=== PATIENT | female | born 1990 | race Caucasian/White ===

== ENCOUNTER → 2018-03-14 02:36 | Outpatient (CLI) | payer MEDICAID, SELFPAY ==
[2018-03-14 09:00] LABS: HCT 39.8 % (36.0-46.0); HGB 13.3 g/dL (12.0-15.5); Mean Corp. HGB Concentration 33.4 g/dL (32.0-36.0); Mean Corpuscular Hemoglobin 29.7 pg (27.0-33.0); Mean Corpuscular Volume 88.8 fL (80-95); Mean Platelet Volume 12.6 fL (8.0-11.0); Platelet Count 194 x1000/uL (130-400); RBC 4.48 m/cumm (4.00-5.20); RBC Distribution Width 13.2 % (11.7-14.6); White Blood Cell Count 5.73 k/cumm (4.4-10.8)
== END ==
PROVIDERS: Visit Provider Obstetrics & Gynecology Gynecology
DX: Z30.2 Encounter for sterilization (principal); Z01.818 Encounter for other preprocedural examination
CPT/HCPCS: 36415; 85027; 86850; 86900; 86901

== ENCOUNTER 2018-04-27 07:21 | Outpatient (CLI) | payer MEDICAID, SELFPAY ==
[2018-04-27 09:20] LABS: ALT 22 U/L (12-78); AST 14 U/L (15-37); Albumin 3.8 g/dL (3.4-5.0); Alkaline Phosphatase 49 U/L (46-116); Anion Gap 8.9 mmol/L (3-11); BUN 12 mg/dL (7-18); Bilirubin, Total 0.4 mg/dL (0.2-1.0); CO2 27.1 mmol/L (21.0-32.0); CREATININE 0.87 mg/dL (0.55-1.02); Calcium 8.3 mg/dL (8.5-10.1); Chloride 106 mmol/L (98-107); Cholesterol 212 mg/dL (50-200); Glucose 82 mg/dL (70-100); HDL Cholesterol 49 mg/dL (40-60); LDL CHOLESTEROL 144 mg/dL (<100); Potassium 4.1 mmol/L (3.5-5.1); Sodium 142 mmol/L (136-145); Total Protein 6.6 g/dL (6.4-8.2); Triglyceride 91 mg/dL (30-150)
== END 2018-04-27 07:41 ==
DX: G47.9 Sleep disorder, unspecified (principal); E03.9 Hypothyroidism, unspecified; F32.9 Major depressive disorder, single episode, unspecified; F43.22 Adjustment disorder with anxiety; L70.0 Acne vulgaris
CPT/HCPCS: 36415; 80053; 80061; 83721; 84443

== ENCOUNTER 2018-11-18 13:58 | Outpatient (REF) | payer MEDICAID, SELFPAY ==
--- NOTE | 2018-11-18 13:40 | PAPFT_PTH ---
PATIENT: Nuvia Pace LOC: [facility] U#:[id number] AGE/SX: 28/F ROOM: RE11/18/[address]: RAFA Connelly : 1990 BED: DIS: 11/18/2018 SPEC #: [id number] RECD: 11/18/18 17:15 STATUS: FRIDA LOVE #: [id number] JOE: 11/18/18 13:[address]: Selena Mina DEPT: [facility] Cytology RECD BY: Leonardo To ENTERED: 11/18/18 17:16 SP TYPE: PAPFT JEREMY DR: Kira Goldberg APRN Tissues: 1 - CX/ENDOCX FOR PAP SMEARS Procedures: PAP THIN PREP/UVM Screening Comments: [id number]
== END 2018-11-18 14:18 ==
LOC: LBN 13:58
PROVIDERS: Visit Provider Nurse Practitioner Family
DX: Z12.4 Encounter for screening for malignant neoplasm of cervix (principal)
CPT/HCPCS: 88142

== ENCOUNTER 2018-12-02 01:46 | Outpatient (CLI) | payer MEDICAID, SELFPAY ==
--- NOTE | 2018-12-02 14:39 | DI.US_ITS ---
SYMPTOMS/DIAGNOSIS: PELVIC PAIN, CRAMPING, R10.2 PELVIC ULTRASOUND: Pelvic ultrasound was performed transabdominally and transvaginally. Please see the accompanying data sheet for measurements of the pelvic structures. Uterus is unremarkable in appearance with 9 mm homogeneous endometrial stripe. No free fluid identified in the cul-de-sac. The ovaries have a normal follicular appearance. There are 21 mm follicles noted bilaterally. One of these may represent a dominant follicle. Note is also made of prominence of left-sided pelvic veins, which measure up to 9-10 mm in diameter with Valsalva maneuver, raising the possibility of pelvic congestion syndrome. Please correlate clinically.
== END 2018-12-02 02:06 ==
PROVIDERS: Visit Provider Nurse Practitioner Family
DX: R10.2 Pelvic and perineal pain (principal); I86.2 Pelvic varices
CPT/HCPCS: 76830; 76856

== ENCOUNTER 2020-04-25 05:08 | Outpatient (CLI) | payer SELFPAY ==
[2020-04-25 09:54] LABS: MCH 30.4 pg (27.0-33.0); MCHC 33.3 % (32.0-36.0); MCV 91.3 fL (80-95); MPV 12.2 fL (8.0-11.0); Platelet Count 197 10^3/uL (130-400); RBC 4.27 10^6/uL (3.93-5.22); RDW 13.1 % (11.7-14.6); RDW-SD 43.2 fL; WBC 6.23 10^3/uL (4.4-10.8)
[2020-04-25 10:59] LABS: ALT 20 U/L (14-59); AST 15 U/L (15-37); Albumin 3.7 g/dL (3.4-5.0); Alkaline Phosphatase 48 U/L (46-116); Anion Gap 7.4 mmol/L (3-11); BUN 10 mg/dL (7-18); Bilirubin, Total 0.3 mg/dL (0.2-1.0); CO2 26.6 mmol/L (21.0-32.0); CREATININE 0.86 mg/dL (0.55-1.02); Calcium 8.8 mg/dL (8.5-10.1); Chloride 107 mmol/L (98-107); Glucose 91 mg/dL (74-106); Potassium 4.2 mmol/L (3.5-5.1); Sodium 141 mmol/L (136-145); TSH (W/Ref FT4) 1.71 uIU/mL (0.36-3.74); Total Protein 6.7 g/dL (6.4-8.2)
== END 2020-04-25 05:28 ==
DX: D50.9 Iron deficiency anemia, unspecified (principal); E03.9 Hypothyroidism, unspecified; L65.9 Nonscarring hair loss, unspecified; G47.9 Sleep disorder, unspecified; G47.00 Insomnia, unspecified
CPT/HCPCS: 36415; 80053; 85027; 84443

== ENCOUNTER 2020-05-27 09:18 | Outpatient (CLI) | payer SELFPAY ==
[2020-05-30 18:17] LABS: Patient Race White; SARS-CoV-2 RNA Undetected (Undetected); SARS-CoV-2 Specimen Source Nasal
== END 2020-05-27 09:38 ==
DX: Z11.59 Encounter for screening for other viral diseases (principal)
CPT/HCPCS: U0003

== ENCOUNTER 2020-06-04 01:10 | Outpatient (CLI) | payer MEDICAID, SELFPAY ==
--- NOTE | 2020-06-04 07:45 | DI.US_ITS ---
EXAM: US BREAST RT COMPLETE CLINICAL HISTORY: Lump of right breast,N63.10 TECHNIQUE: Ultrasound right breast performed using standard protocol. COMPARISON: None FINDINGS: There is a well-circumscribed, radially oriented hypoechoic mass at the 12 o'clock position of the ri ght breast 6 cm from the nipple. It measures 0.9 x 0.6 x 1 cm. It corresponds to the palpable abnorma lity. No internal blood flow or posterior acoustic enhancement or shadowing is seen. The entire right breast was evaluated. No other cystic or solid masses are seen sonographically. IMPRESSION: 1 cm hypoechoic mass at the 12 o'clock position of the right breast 6 cm from the nipple correspondin g to the palpable abnormality. Sonographically, this appears to to be consistent with a benign lesion such as a fibroadenoma. No suspicious sonographic features are noted. BI-RADS Category 2 - Benign Findings DATA REPOSITORY:
== END 2020-06-04 01:30 ==
PROVIDERS: Visit Provider Nurse Practitioner Family
DX: N63.15 Unspecified lump in the right breast, overlapping quadrants (principal)
CPT/HCPCS: 76642

== ENCOUNTER 2021-11-05 03:10 | Outpatient (CLI) | payer OTHER, SELFPAY ==
[2021-11-05 14:28] LABS: TSH (W/Ref FT4) 2.19 uIU/mL (0.36-3.74)
[2021-11-05 22:32] LABS: Prolactin 4.1 ng/mL (See Note)
== END 2021-11-05 03:11 | disposition home or self-care (01) ==
LOC: LBO 03:11
PROVIDERS: Visit Provider Obstetrics & Gynecology Gynecology
DX: N64.52 Nipple discharge (principal); E03.9 Hypothyroidism, unspecified
CPT/HCPCS: 36415; 84146; 84443

== ENCOUNTER → 2022-07-15 01:18 | Outpatient (CLI) | payer OTHER, SELFPAY ==
--- NOTE | 2022-07-15 07:00 | DI.MAMMO_ITS ---
Exam(s) US BREAST RT COMPLETE MG MAMMO DIAGNOSTIC BI EXAM: MG MAMMO DIAGNOSTIC BI AND COMPLETE RIGHT BREAST ULTRASOUND CLINICAL HISTORY: BIlateral nipple discharge,RT BREAST MASS, N63.10, N64.52. TECHNIQUE: Both CC and MLO mammographic images of both breasts were obtained with 3D tomosynthesis t echnique and utilizing computer aided detection (CAD). Also performed additional spot compression 3D view of the area of clinical concern in the right breas t. Complete ultrasound examination of the right breast was performed (side of clinical concern), includi ng all 4 quadrants, the retroareolar region, and the right axilla. This 32-year-old patient continues to have a palpable finding at approximately 12 o'clock position of the right breast. She has had bilateral nonbloody nipple discharge for some time. She has had arjun te (2013) excisional biopsy of the opposite-left breast which was apparently a benign lipoma. COMPARISON: Prior mammograms of 10/27/2021 was reviewed. Also reviewed prior breast ultrasound performed 12/02/2021 FINDINGS: DIAGNOSTIC BILATERAL MAMMOGRAM: No spiculated masses in either breast. Benign-appearing microcalcifications in the right breast are again noted, unchanged. No new architectural distortion or skin thickening-traction in either breast. COMPLETE RIGHT BREAST ULTRASOUND: No evidence of solid or significant cystic lesions in all 4 quadrants. In the area of palpable concern at 12 o'clock position there is dense tissue but no truly discernible mass nor cyst. The previously described finding upon multi planer real-time imaging has more than t he appearance of asymmetric tissue than an actual mass such as possible fibroadenoma mentioned on the prior report. No significant dilated ducts in the retroareolar region. Scanning of the right axilla is negative for significant adenopathy. IMPRESSION: 1. No radiographic evidence of malignancy. 2. No significant focal findings evident at the area of concern at 12 o'clock position of the right b reast nor elsewhere in all 4 quadrants of the right breast. Also no ipsilateral axillary adenopathy. Appropriate follow-up would be at the discretion of the referring breast surgeon. If clinically laina cated one can proceed with breast MRI. Alternatively biopsy. The patient was informed of the findings and follow-up recommendations prior to leaving the [facility] t today. BI-RADS Category 0 - Assessment Incomplete: Need additional imaging evaluation Breast Density - Category B - Scattered areas of fibroglandular density Breast density Category C or D implies that the patient has dense breast tissue. Dense breast tissue can make it harder to find cancer on a mammogram. Dense breast tissue is also associated with an incr eased risk of breast cancer. This information about the result of the mammogram report was provided to the patient to raise their awareness. Use this report when you speak with the patient about their risks for breast cancer, which includes their family history. At that time, you may recommend additional screening tests (Ultrasoun d or MRI) as these tests may add significant information. A negative radiographic report should not delay biopsy if a dominant or clinically suspicious mass is present. Up to ten percent of cancers are not identified on mammography. A negative report may reinforce clinical impression. Adenosis and dense breasts may obscure an underlying neoplasm. False positive reports average 6 to 10%. Patient will receive a letter notifying them of these results.
== END ==
PROVIDERS: PCP Nurse Practitioner Family; Visit Provider Surgery
DX: N64.52 Nipple discharge (principal); N63.15 Unspecified lump in the right breast, overlapping quadrants; N64.59 Other signs and symptoms in breast
CPT/HCPCS: 76642; 77062; 77066; G0279

== ENCOUNTER 2022-07-15 02:05 | Outpatient (CLI) | payer OTHER, SELFPAY ==
[2022-07-15 09:29] LABS: Anion Gap 8.8 mmol/L (3-11); BUN 13 mg/dL (7-18); CO2 27.2 mmol/L (21.0-32.0); Calcium 8.6 mg/dL (8.5-10.1); Chloride 106 mmol/L (98-107); Estimated GFR 77.24 (mL/min/1.73m2); Glucose 99 mg/dL (74-106); Potassium 3.9 mmol/L (3.5-5.1); Sodium 142 mmol/L (136-145); TSH (W/Ref FT4) 4.04 uIU/mL (0.36-3.74)
[2022-07-15 09:46] LABS: FREE T4 0.87 ng/dL (0.76-1.46)
== END 2022-07-15 02:06 | disposition home or self-care (01) ==
LOC: LBO 02:05
PROVIDERS: PCP Nurse Practitioner Family; Visit Provider Nurse Practitioner Family
DX: E03.9 Hypothyroidism, unspecified (principal); E66.8 Other obesity
CPT/HCPCS: 36415; 80048; 84439; 84443

== ENCOUNTER 2023-02-11 02:34 | Outpatient (CLI) | payer SELFPAY ==
[2023-02-11 13:17] LABS: HCT 37.8 % (36.0-46.0); HGB 12.7 g/dL (11.2-15.7); MCH 30.2 pg (27.0-33.0); MCHC 33.6 % (32.0-36.0); MCV 90 fL (80-95); MPV 12.5 fL (8.0-11.0); Platelet Count 206 10^3/uL (130-400); RDW 12.7 % (11.7-14.6); RDW-SD 41.4 fL; WBC 6.48 10^3/uL (4.4-10.8)
[2023-02-11 13:51] LABS: Anion Gap 8.4 mmol/L (3-11); BUN 7 mg/dL (7-18); CO2 28.6 mmol/L (21.0-32.0); CREATININE 0.8 mg/dL (0.55-1.02); Calcium 8.8 mg/dL (8.5-10.1); Chloride 107 mmol/L (98-107); Estimated GFR 100.96 (mL/min/1.73m2); Glucose 93 mg/dL (74-106); Potassium 4.4 mmol/L (3.5-5.1); Sodium 144 mmol/L (136-145); TSH (W/Ref FT4) 4.08 uIU/mL (0.36-3.74)
[2023-02-11 14:07] LABS: FREE T4 0.73 ng/dL (0.76-1.46)
== END 2023-02-11 02:35 | disposition home or self-care (01) ==
LOC: LBO 02:34
PROVIDERS: PCP Nurse Practitioner Family; Visit Provider Nurse Practitioner Family
DX: E03.9 Hypothyroidism, unspecified (principal); F43.22 Adjustment disorder with anxiety; F34.89 Other specified persistent mood disorders
CPT/HCPCS: 36415; 80048; 85027; 84439; 84443

== ENCOUNTER 2023-03-09 08:23 | Emergency (ER) | payer SELFPAY ==
[2023-03-09] VITALS (18 sets, daily range): BP systolic 94–124; BP diastolic 50–81; PULSE 50–98; RESP 14–25; TEMP 37; O2SAT 98–100
--- NOTE | 2023-03-09 08:15 | RT.EKG_ITS ---
APPROVED REPORT Exam: Resting ECG Reason for Exam: chest pain Patient Location: E HR:77 bpm ECG Measurements Heart Rate 77 AXIS PA 144 P 70 QRSd 78 QRS 52 QT 403 T 63 QTc 456 Conclusion Sinus rhythm. V-rate 60- [address] segment or T wave abnormalities to suggest occlusive NM
--- NOTE | 2023-03-09 08:45 | DI.RAD_ITS ---
Exam(s) XR CHEST 2V PA LATERAL EXAM: XR CHEST 2V PA LATERAL CLINICAL HISTORY: Chest Pain, TECHNIQUE: 2D digital imaging was performed. COMPARISON: CR ABD FLAT UPRIGHT PA CHEST from 11/26/2011 FINDINGS: HEART: Normal size. Aorta: Not dilated. PULMONARY VASCULATURE: Normal. LUNGS: Clear. PLEURAL SPACE: No pleural effusion or pneumothorax. BONE:Unremarkable for age. IMPRESSION: No acute abnormality. DATA REPOSITORY: RADIATION DOSE DELIVERED:
--- NOTE | 2023-03-09 08:53 | W.ED.GENAD ---
Discharge Plan Disposition Patient Disposition: Home Condition: Improving Discharge Details Clinical Impression: Chest wall pain, Elevated TSH Primary Care Provider: Tammi pAodaca ED Provider: Rachel Barrett Home Meds and New Rx's Prescriptions: Continued triamcinolone acetonide 0.5 % cream 1 applic TP BID Qty: 454 1RF Rx Instructions: Apply to hands sparing twice per day for 3 weeks or until resolved - try to take one week off per month. fluoxetine 20 mg capsule 20 mg PO DAILY Qty: 90 1RF fluoxetine 10 mg capsule 10 mg PO DAILY Qty: 90 1RF Rx Instructions: take with 20 mg for a total dose of 30 mg daily. levothyroxine 25 mcg tablet 25 mcg PO DAILY Qty: 90 3RF Hold Instructions: Home Medication placed on hold at Doctor's office No Action venlafaxine 75 mg capsule,extended release 24hr 37.5 mg PO DAILY Patient Comments: taking 27.5 QOD Discharge Instructions Instructions: Chest Wall Pain (ED) Additional Instructions: Please keep your appointment today at 2 PM as previously scheduled. No evidence of heart attack, pneumonia or any other acute abnormality. You do have a elevated TSH level at 5.72 the free T4 was within normal limits today. Follow up with primary care provider in 1 days. Return to ED sooner if any worsening or concerns. Increase oral fluids. Please take Tylenol or Ibuprofen with food every 4-6 hours as needed for pain and swelling. 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 She describes it as warm, burning and intermittant Nothing relieves pain, increases with movement. She is tearful upon initial assesment. PMHX Adjustment disorder with anxiety, Depression, Hypothyroidisim, smoker, She does endorse Marijuana, denies any other elicit drugs or alcohol. 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 Denies recent long trips, no HRT, denies swelling to lower extremities. Workup ordered including CBC, CMP, Trop, Dimer, TSH, CXR and Lorazepam and Mylanta. Diff dx includes, Chest wall pain, Gerd, anxiety, thyroid abnormality, CAD, Seratonin syndrome however, she is not Tachycardic. Patient states she has had recent anxiety medication changes, with her Venlafaxine and fluoxetine. EKG shows QT 403, NSR, See offical report. 1031: Patient reevaluation she reports that she feels somewhat better after the ketorolac injection. She is resting in bed comfortably IV is infusing without difficulty. She is maintained hemodynamically stable throughout entire stay. She does have a PCP appointment at 2 PM today. I did discuss her lab results with her including her TSH which is slightly higher than her previous results. D-dimer is negative, free T4 also within normal limits, UDS positive for THC, urine negative. Second serial troponin canceled, patient reported that she did not want to wait for the second result. I did discuss risk and benefits and after shared decision making she opted out of the second troponin. I do suspect that this is musculoskeletal pain, with some anxiety and GERD possibly. I did encourage her to keep her appointment she verbalizes understanding. This text was generated using jaeyos dictation system, please disregard any oddities of phrase or misspellings. Medical Records Medical records reviewed: Yes I reviewed the patient's medical records. Imaging Data Radiologic Study: Imaging: X-Ray Radiologist's impression: XR CHEST 2V PA ? LATERAL EXAM:? XR CHEST 2V PA ? LATERAL CLINICAL HISTORY:? Chest Pain, TECHNIQUE:? 2D digital imaging was performed. COMPARISON:? CR ABD FLAT UPRIGHT PA CHEST from 11/26/2011 FINDINGS: HEART: Normal size.? Aorta: Not dilated. PULMONARY VASCULATURE: Normal. LUNGS: Clear. ? PLEURAL SPACE: No pleural effusion or pneumothorax. BONE:Unremarkable for age.? IMPRESSION: No acute abnormality.? Lab Data Labs: Laboratory Tests Range/Units 03/09/23 03/09/23 03/09/23 08:38 08:38 08:38 WBC (4.4-10.8) 10^3/uL 6.85 RBC (3.93-5.22) 10^6/uL 4.48 Hgb (11.2-15.7) g/dL 13.4 Hct (36.0-46.0) % 40.0 MCV (80-95) fL 89 MCH (27.0-33.0) pg 29.9 MCHC (32.0-36.0) % 33.5 RDW (11.7-14.6) % 12.5 Plt Count (130-400) 10^3/uL 240 MPV (8.0-11.0) fL 12.2 H Immature Gran % 0.1 Neutrophils % 57.5 Lymphocytes % 28.0 Monocytes % 7.7 Eosinophils % 5.5 Basophils % 1.2 Nucleated RBC % (0.0-0.3) % 0.0 Absolute Neutrophils (1.2-6.7) 10^3/uL 3.93 Absolute Lymphocytes (1.2-3.4) 10^3/uL 1.92 Absolute Monocytes (0.1-0.8) 10^3/uL 0.53 Absolute Eosinophils (0.0-0.7) 10^3/uL 0.38 Absolute Basophils (0.0-0.2) 10^3/uL 0.08 D-Dimer (<500) ng/mlFEU 315 Sodium (136-145) mmol/L 144 Potassium (3.5-5.1) mmol/L 3.9 Chloride (98-107) mmol/L 107 Carbon Dioxide (21.0-32.0) mmol/L 27.2 Anion Gap (3-11) mmol/L 9.8 BUN (7-18) mg/dL 9 Creatinine (0.55-1.02) mg/dL 0.9 Est GFR (CKD-EPI 2020) (mL/min/1.73m2) 87.65 Glucose (74-106) mg/dL 92 Calcium (8.5-10.1) mg/dL 8.9 Magnesium (1.8-2.4) mg/dL 2.0 Total Bilirubin (0.2-1.0) mg/dL 0.2 AST (15-37) U/L 12 L ALT (14-59) U/L 18 Alkaline Phosphatase (46-116) U/L 57 Troponin I (<or=60) ng/L < 50 Total Protein (6.4-8.2) g/dL 7.5 Albumin (3.4-5.0) g/dL 3.8 TSH (0.36-3.74) uIU/mL 5.72 H Free T4 (0.76-1.46) ng/dL 0.83 Urine Opiates Screen (Negative) Urine Methadone Screen (Negative) Ur Barbiturates Screen (Negative) Ur Tricyclics Screen (Negative) Ur Amphetamines Screen (Negative) U Benzodiazepines Scrn (Negative) Urine Cocaine Screen (Negative) Ur THC Screen (Negative) Range/Units 03/09/23 03/09/23 03/09/23 08:38 09:00 11:51 WBC (4.4-10.8) 10^3/uL RBC (3.93-5.22) 10^6/uL Hgb (11.2-15.7) g/dL Hct (36.0-46.0) % MCV (80-95) fL MCH (27.0-33.0) pg MCHC (32.0-36.0) % RDW (11.7-14.6) % Plt Count (130-400) 10^3/uL MPV (8.0-11.0) fL Immature Gran % Neutrophils % Lymphocytes % Monocytes % Eosinophils % Basophils % Nucleated RBC % (0.0-0.3) % Absolute Neutrophils (1.2-6.7) 10^3/uL Absolute Lymphocytes (1.2-3.4) 10^3/uL Absolute Monocytes (0.1-0.8) 10^3/uL Absolute Eosinophils (0.0-0.7) 10^3/uL Absolute Basophils (0.0-0.2) 10^3/uL D-Dimer (<500) ng/mlFEU Sodium (136-145) mmol/L Potassium (3.5-5.1) mmol/L Chloride (98-107) mmol/L Carbon Dioxide (21.0-32.0) mmol/L Anion Gap (3-11) mmol/L BUN (7-18) mg/dL Creatinine (0.55-1.02) mg/dL Est GFR (CKD-EPI 2020) (mL/min/1.73m2) Glucose (74-106) mg/dL Calcium (8.5-10.1) mg/dL Magnesium (1.8-2.4) mg/dL Total Bilirubin (0.2-1.0) mg/dL AST (15-37) U/L ALT (14-59) U/L Alkaline Phosphatase (46-116) U/L Troponin I (<or=60) ng/L Cancelled Total Protein (6.4-8.2) g/dL Albumin (3.4-5.0) g/dL TSH (0.36-3.74) uIU/mL Cancelled Free T4 (0.76-1.46) ng/dL Urine Opiates Screen (Negative) Negative Urine Methadone Screen (Negative) Negative Ur Barbiturates Screen (Negative) Negative Ur Tricyclics Screen (Negative) Negative Ur Amphetamines Screen (Negative) Negative U Benzodiazepines Scrn (Negative) Negative Urine Cocaine Screen (Negative) Negative Ur THC Screen (Negative) Positive A HPI General Mode of arrival: ambulatory. Date/Time Provider Initiated Documentation: 03/09/23 08:44. Limitations to Documentation: no limitations. Information obtained by: patient, RN notes reviewed and old records reviewed. 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 She describes it as warm, burning and intermittant Nothing relieves pain, increases with movement. She is tearful upon initial assesment. PMHX Adjustment disorder with anxiety, Depression, Hypothyroidisim, smoker, She does endorse Marijuana, denies any other elicit drugs or alcohol. 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 Denies recent long trips, no HRT, denies swelling to lower extremities. Related Data Home Medications Medication Instructions Recorded Confirmed triamcinolone acetonide 0.5 % 1 applic topical BID Eczema #454 06/29/22 03/09/23 topical cream grams fluoxetine 10 mg capsule 10 mg PO DAILY #90 caps 02/08/23 03/09/23 fluoxetine 20 mg capsule 20 mg PO DAILY #90 caps 02/08/23 03/09/23 levothyroxine 25 mcg tablet 25 mcg PO DAILY #90 tab-caps 02/11/23 03/09/23 venlafaxine 75 mg capsule,extended 37.5 mg PO DAILY 03/09/23 release 24 hr Previous Rx's Medication Instructions Recorded triamcinolone acetonide 0.5 % 1 applic topical BID Eczema #454 06/29/22 topical cream grams fluoxetine 10 mg capsule 10 mg PO DAILY #90 caps 02/08/23 fluoxetine 20 mg capsule 20 mg PO DAILY #90 caps 02/08/23 levothyroxine 25 mcg tablet 25 mcg PO DAILY #90 tab-caps 02/11/23 Allergies Allergy/AdvReac Type Severity Reaction Status Date / Time No Known Drug Allergies Allergy Verified 03/09/23 14:12 General Stated Complaint: Chest Pain VERA: 3 Review of Systems All systems reviewed & are unremarkable except as noted in HPI and below Constitutional Constitutional: Denies fever(s) Cardiovascular Cardiovascular: Reports chest pain, Reports chest pain at rest, Reports chest pain with activity, Denies claudication, Denies leg edema, Denies radiating jaw, neck or arm pain and Reports dyspnea Respiratory Respiratory: Denies cough, Denies hemoptysis, Denies excessive phlegm production, Reports dyspnea, Denies stridor and Denies wheezing Gastrointestinal Gastrointestinal: Denies abdominal pain, Denies hematochezia, Denies nausea and Denies vomiting Psychiatric Psychiatric: Reports as per HPI, Reports anxiety and Reports other (Tearful) Allergic/Immunologic Allergic/Immunologic: Denies wheezing PFSH All Active Problems (Updated 03/09/23 @ 14:43 by Tammi Apodaca NP) Depressive disorder (Chronic) Elevated TSH (Acute) Chest wall pain (Acute) Throat disorder (Acute) Discharge from nipple (Acute) Mass of right breast (Acute) Sleep disturbance, unspecified (Acute) Medical History Acne vulgaris (02/17/16) Adjustment disorder with anxiety (02/15/18) History of Citalopram - effect not remembered. 2018 - Venlafaxine trial Depressive disorder Disturbance in sleep behavior Eczema of both hands First degree perineal laceration, delivered, current hospitalization (05/23/13) Hair loss Hypothyroidism (acquired) (02/07/16) Lumbar pain on palpation Obesity (BMI 35.0-39.9 without comorbidity) Smoker (09/21/12) Quit during - has resumed. Currently smoking about 10 cig/per day. Not currently motivated to quit. Will revisit periodically. Viral warts (02/17/16) right hand Surgical History Breast, Lumpectomy (~04/2014) 05/15/14-LEFT Ligation of fallopian tube (03/16/18) bilateral laparoscopic salpingectomy. Family History Mother Diabetes Father , AGE 39 Suicide Alcohol abuse Depression Maternal Uncle Liver cancer Pancreatic cancer Lung cancer Maternal Aunt Liver cancer Lung cancer Maternal Cousin Breast cancer Sister Alcohol abuse Depression Maternal Grandfather Depression Diabetes Heart disease Hyperlipidemia Paternal Grandfather No problems noted. Maternal Grandmother , AGE 45 Depression Alcohol abuse Paternal Grandmother Throat cancer Son No problems noted. Daughter No problems noted. Daughter No problems noted. Social History Smoking/Tobacco Use Status: Current every day Tobacco Type: cigarettes Tobacco: How many years used: 10 Quit status: not considering quitting Second Hand Exposure: Yes Smoking risk assessment performed?: Yes Alcohol Intake: current Alcohol Intake frequency: holidays/special occasions only Alcohol type: beer Drug use: Rarely Substance use type: marijuana Counseling given: No Counseling provided: none Adopted: No Caregiver/Support person: No Foster care: No Household members: spouse and children Housing: house Communication Needs: None Do you need help understanding health information?: Never current occupation: [employer] Pets and animals: Yes Pets and animals: dog(s) and fish Sexually active: Yes Do you think of yourself as: straight/heterosexual Current gender identity: female What is your relationship status?: How often do you talk on the phone with friends or family?: three or more times per week How often do you get together with friends or relatives?: once per week How often do you attend latter day or muslim services?: decline to answer Do you belong to any clubs or organized social groups?: no Panel score (0-1 are the most socially isolated patients): 2 What type of physical activity do you participate in: other Duration: < 15 minutes/day Frequency: 1-2 times per week Tran/Scientology: None Special tran needs: No Seatbelt use: always Helmet use: No Drive intox or ride w/intox dedicated truck driver: No Water heater temp set <120 deg: Yes Working smoke detector in home: Yes Fire extinguisher in home: Yes Carbon monox detector in home: Yes Firearms in home: No Victim of physical abuse: No Victim of emotional abuse: Yes Victim of sexual abuse: No Exam Narrative Exam Narrative: Constitutional: Alert and oriented x3. Appears stated age. Normal body habitus. Head: Normocephalic, no trauma. Eyes: Pupils PERRL, Red reflex noted, EOM's intact. Eyelids symmetrical without lesions, discharge, or swelling. ENT: External ear normal to inspection, no mastoid TTP, swelling, or erythema, Nasal turbinates WNL, no nasal discharge. Normal dentition, Chest: RRR, Normal S1, S2, distal pulses intact. Resp: Lungs clear to auscultation bilaterally, no wheezes, rales, or rhonchi. Abdomen: Soft, non-distended, Normoactive bowel sounds all 4 quads. Musculoskeletal: Normal gait, 5/5 strength to all four extremities. Skin: No suspicious rashes or lesions. Capillary refill less than 2 sec. Neurologic: Cranial nerves II-XII intact. Alert and oriented x 3. Motor: No deficits noted. Sensory: Intact bilaterally all 4 extremities. Hematologic/Lymphatic: No ecchymosis, no lymphadenopathy. Cardio Rate: regular rate Rhythm: regular rhythm Heart Sounds: S1 normal and S2 normal Psych Appearance: grossly normal Mood: anxious mood Affect: normal affect Attitude: cooperative Thought Content: normal Insight: insight good Judgment: judgment good Course Vital Signs Vital signs: Vital Signs Temperature 37 C 03/09/23 08:30 Pulse 70 03/09/23 08:30 Respiratory Rate 22 03/09/23 08:30 Blood Pressure 118/81 03/09/23 08:30 Pulse Oximetry 99 03/09/23 08:30 Temperature 37 C 03/09/23 08:30 Temperature Source Oral 03/09/23 08:30 Pulse 70 03/09/23 08:30 Respiratory Rate 22 03/09/23 08:30 Respiratory Effort Normal, Non-Labored 03/09/23 08:37 Respiratory Depth Normal 03/09/23 08:37 Respiratory Pattern Normal 03/09/23 08:37 Blood Pressure 118/81 03/09/23 08:30 Blood Pressure Position Sitting 03/09/23 08:30 Pulse Oximetry 99 03/09/23 08:30 Oxygen Delivery Method Room Air 03/09/23 08:30 Oxygen Flow Rate 0 03/09/23 08:30
[2023-03-09 09:02] LABS: Abs Immature Grans 0.01 10^3/uL (0.0-0.06); Absolute Basophil Count 0.08 10^3/uL (0.0-0.2); Absolute Eosinophil Count 0.38 10^3/uL (0.0-0.7); Absolute Lymphocyte Count 1.92 10^3/uL (1.2-3.4); Absolute Monocyte Count 0.53 10^3/uL (0.1-0.8); Absolute Neutrophil Count 3.93 10^3/uL (1.2-6.7); Basophils % 1.2; Eosinophils % 5.5; HGB 13.4 g/dL (11.2-15.7); Immature Grans % 0.1; MCH 29.9 pg (27.0-33.0); MCHC 33.5 % (32.0-36.0); MCV 89 fL (80-95); MPV 12.2 fL (8.0-11.0); Monocytes % 7.7; Neutrophils % 57.5; Platelet Count 240 10^3/uL (130-400); RBC 4.48 10^6/uL (3.93-5.22); RDW 12.5 % (11.7-14.6); RDW-SD 40.9 fL; WBC 6.85 10^3/uL (4.4-10.8)
[2023-03-09 09:32] LABS: ALT 18 U/L (14-59); AST 12 U/L (15-37); Albumin 3.8 g/dL (3.4-5.0); Alkaline Phosphatase 57 U/L (46-116); Anion Gap 9.8 mmol/L (3-11); BUN 9 mg/dL (7-18); Bilirubin, Total 0.2 mg/dL (0.2-1.0); CO2 27.2 mmol/L (21.0-32.0); CREATININE 0.9 mg/dL (0.55-1.02); Calcium 8.9 mg/dL (8.5-10.1); Chloride 107 mmol/L (98-107); D-Dimer 315 ng/mlFEU (<500); Estimated GFR 87.65 (mL/min/1.73m2); Glucose 92 mg/dL (74-106); Potassium 3.9 mmol/L (3.5-5.1); Sodium 144 mmol/L (136-145); TSH (W/Ref FT4) 5.72 uIU/mL (0.36-3.74); Total Protein 7.5 g/dL (6.4-8.2); Troponin I < 50 ng/L (<or=60)
[2023-03-09] MEDS: Mylanta Suspension 30 ML CUP PO (09:36)
[2023-03-09] MEDS: LORazepam 2 MG/ML VIAL 0.5 MG IVP (09:36)
[2023-03-09 09:39] LABS: *AMPHETAMINES SCREEN URINE Negative (Negative); *BARBITURATES SCREEN URINE Negative (Negative); *BENZODIAZEPINES SCREEN URINE Negative (Negative); Cannabinoids THC Positive (Negative); Cocaine Screen,Urine Negative (Negative); METHADONE URINE SCREEN Negative (Negative); OPIATES URINE SCREEN Negative (Negative)
[2023-03-09 09:41] LABS: Tricyclic Antidepressants Negative (Negative)
[2023-03-09 09:50] LABS: FREE T4 0.83 ng/dL (0.76-1.46)
[2023-03-09] MEDS: Normal Saline 500 ML IV (10:02)
[2023-03-09] MEDS: Ketorolac 15 MG/ML VIAL IVP (10:03)
--- NOTE | 2023-03-09 10:28 | NUR.NOTE ---
Nursing Note: This Rn took report at 10am and assumed care. Pt in bed and in no signs of acute distress. CP continues, substernal, radiating to neck. Pt medicated and VSS. Pt understands next steps of care and has warm blankets for comfort.
== END 2023-03-09 10:50 | disposition home or self-care (01) ==
PROVIDERS: Emergency Provider Registered Nurse Emergency; PCP Nurse Practitioner Family
DX: R07.89 Other chest pain (principal); R79.89 Other specified abnormal findings of blood chemistry
CPT/HCPCS: 36415; 80053; 80307; 81025; 93005; 96361; 96374; 96375; 99284; 71046; 83735; 84439; 84443; 84484; 85025; 85379; 93010; J1885; J2060

== ENCOUNTER 2023-04-09 02:54 | Outpatient (CLI) | payer MEDICAID, SELFPAY | END 2023-04-09 02:55 | disposition home or self-care (01) | PROVIDERS: PCP Nurse Practitioner Family; Visit Provider Nurse Practitioner Family | DX: E03.9 Hypothyroidism, unspecified (principal) | CPT/HCPCS: 36415; 84443 ==

== ENCOUNTER 2023-06-07 12:52 | Outpatient (REF) | payer MEDICAID, SELFPAY ==
--- NOTE | 2023-06-07 10:00 | PAPFT_PTH ---
PATIENT: Nuvia Pace LOC: [facility] U#:[id number] AGE/SX: 32/F ROOM: RE06/07/[address]: Tammi Apodaca NP : 1990 BED: DIS: 06/07/2023 SPEC #: [id number] RECD: 06/08/23 12:43 STATUS: FRIDA REJulio Cesar #: [id number] JOE: 06/07/23 10:[address]: Tammi Apodaca DEPT: [facility] Cytology RECD BY: Beverly Melissa Tissues: 1 - CX/ENDOCX FOR PAP SMEARS Procedures: PAP THIN PREP/UVM Screening HPV DNA PROBE Comments: [id number]
== END 2023-06-07 12:53 | disposition home or self-care (01) ==
LOC: LBN 12:52
PROVIDERS: PCP Nurse Practitioner Family; Visit Provider Nurse Practitioner Family
DX: Z12.4 Encounter for screening for malignant neoplasm of cervix (principal)
CPT/HCPCS: 88142; 87624

== ENCOUNTER → 2023-12-07 09:58 | Outpatient (CLI) | payer MEDICAID, SELFPAY ==
--- NOTE | 2023-12-07 08:45 | DI.RAD_ITS ---
Exam(s) XR LUMBAR SPINE COMPLETE EXAM: XR LUMBAR SPINE COMPLETE CLINICAL HISTORY: evaluate pathology, M54.50, M25.551. TECHNIQUE: 2D digital imaging was performed. COMPARISON: No exams were available for comparison FINDINGS: Five views. No evidence of fracture or listhesis. No pars defects. Mild disc space narrowing at L5-S1 level not ed. Other disc spaces exhibit normal height. Facet joints unremarkable. SI joints unremarkable. M ild scoliosis convex right. IMPRESSION: No acute osseous findings in the lumbar spine. DATA REPOSITORY: RADIATION DOSE DELIVERED:
--- NOTE | 2023-12-07 08:45 | DI.RAD_ITS ---
Exam(s) XR HIP RT COMPLETE AP PELVIS EXAM: XR HIP RT COMPLETE AP PELVIS CLINICAL HISTORY: evaluate pathology. TECHNIQUE: 2D digital imaging was performed. COMPARISON: No exams were available for comparison FINDINGS: 3 views No evidence of pelvic nor hip fracture. No degenerative changes. No hip dysplasia. No evidence for necrosis. Additional lateral view of the right hip is unremarkable. SI joints appear unremarkable. IMPRESSION: No acute osseous findings in the pelvis and hips. DATA REPOSITORY: RADIATION DOSE DELIVERED:
== END ==
PROVIDERS: PCP Nurse Practitioner Family; Visit Provider Nurse Practitioner Family
DX: M54.50 Low back pain, unspecified (principal); M25.551 Pain in right hip
CPT/HCPCS: 72110; 73502

== ENCOUNTER 2024-05-05 00:40 | Outpatient (CLI) | payer SELFPAY ==
--- NOTE | 2024-05-05 07:30 | DI.MRI_ITS ---
Exam(s) MR LOWER JOINT RT WO EXAM: MR LOWER JOINT RT WO CLINICAL HISTORY: c/o internal derangment,rt knee pain, m25.561 TECHNIQUE: Multiplanar multisequence MRI of the knee was performed. COMPARISON: There are no plain films of the knee available at the time of this MRI interpretation. FINDINGS: EFFUSION: There is a small amount of increased joint fluid but no large joint effusion. No loose int ra-articular bodies.. There is no Bui cyst in the popliteal fossa. There is soft tissue signal abnormality posteriorly related to the superior aspect of the medial cassandra rocnemius. Probable muscle strain. MARROW:There is no evidence of fracture, bone contusion, nor osteochondral defects.. There are no si gnificant osseous lesions. PATELLOFEMORAL COMPARTMENT: The quadriceps tendon is intact. The patellar ligament is intact. There is no significant thinning of the retropatellar cartilage. No evidence of fissure nor signific ant chondral defect. No osteochondral defect at this level.There is no intraosseous signal to sugges t recent patellar dislocation. There are no patellar retinacular tears. CRUCIATE LIGAMENTS: The anterior cruciate ligament is intact.The posterior cruciate ligament is intac t. MEDIAL COMPARTMENT/MEDIAL MENISCUS: There are no tears of the medial meniscus evident.No evidence of meniscocapsular separation.. There are no chondral defects, osteochondral defects, subarticular marrow edema, nor osteophytes evid ent. MEDIAL COLLATERAL LIGAMENT: Intact LATERAL COMPARTMENT/LATERAL MENISCUS: There is no evidence of lateral meniscal tear.There are no jannet dral defects, osteochondral defects, subarticular marrow edema, nor osteophytes evident. ILIOTIBIAL BAND: Intact LATERAL COLLATERAL LIGAMENT COMPLEX: The fibular collateral ligament is intact. The biceps femoris t endon is intact.Popliteus muscle and tendon are intact. IMPRESSION: 1. No evidence of meniscal tears, cruciate ligament tears, nor collateral ligament tears. 2. No obvious degenerative changes and no osteochondral defects. 3. Minimal amount of increased joint fluid. No large joint effusion. 4. No evidence of significant chondromalacia nor other significant findings in the patellofemoral com partment. 5. In the posterior medial aspect of the knee there is some signal abnormality in the soft tissues r elated to the surface of of the medial gastrocnemius consistent with probable muscle strain. DATA REPOSITORY:
== END 2024-05-05 01:00 ==
LOC: DI 00:40
PROVIDERS: PCP Nurse Practitioner Family; Visit Provider Physician Assistant
DX: M25.561 Pain in right knee (principal)
CPT/HCPCS: 73721

== ENCOUNTER 2024-06-08 21:52 | Outpatient (REF) | payer MEDICAID, SELFPAY ==
--- NOTE | 2024-06-08 14:40 | PAPFT_PTH ---
PATIENT: Nuvia Pace LOC: [facility] U#:[id number] AGE/SX: 33/F ROOM: RE06/08/[address]: Tammi Apodaca NP : 1990 BED: DIS: 06/08/2024 SPEC #: [id number] RECD: 06/09/24 13:44 STATUS: FRIDA REJulio Cesar #: [id number] JOE: 06/08/24 14:[address]: Tammi Apodaca DEPT: [facility] Cytology RECD BY: Beverly Melissa Tissues: 1 - CX/ENDOCX FOR PAP SMEARS Procedures: PAP THIN PREP/[facility] Screening HPV DNA PROBE Comments: [id number] (HVP 16 & 18/45)
[2024-06-08 22:30] LABS: Anion Gap 10.4 mmol/L (3-11); BUN 17 mg/dL (7-18); CO2 28.6 mmol/L (21.0-32.0); CREATININE 0.9 mg/dL (0.55-1.02); Calcium 9.1 mg/dL (8.5-10.1); Calculated LDL 170 mg/dL (<100); Chloride 105 mmol/L (98-107); Cholesterol 257 mg/dL (<200); Estimated GFR 87.11 (mL/min/1.73m2); Glucose 90 mg/dL (74-106); HDL Cholesterol 78 mg/dL (40-60); Potassium 4.6 mmol/L (3.5-5.1); Sodium 144 mmol/L (136-145); TSH (W/Ref FT4) 8.39 uIU/mL (0.36-3.74); Triglyceride 49 mg/dL (<150)
[2024-06-08 22:46] LABS: FREE T4 0.81 ng/dL (0.76-1.46)
== END 2024-06-08 21:53 | disposition home or self-care (01) ==
LOC: LBN 21:52
PROVIDERS: PCP Nurse Practitioner Family; Visit Provider Nurse Practitioner Family
DX: Z00.00 Encounter for general adult medical examination without abnormal findings (principal); E03.9 Hypothyroidism, unspecified; F32.9 Major depressive disorder, single episode, unspecified; N63.10 Unspecified lump in the right breast, unspecified quadrant
CPT/HCPCS: 80048; 80061; 88142; 84439; 84443; 87624

== ENCOUNTER 2025-04-02 07:21 | Outpatient (CLI) | payer MEDICAID, SELFPAY ==
[2025-04-02 15:05] LABS: TSH (W/Ref FT4) 5.46 uIU/mL (0.36-3.74)
[2025-04-02 15:07] LABS: HCG Quant, Pregnancy < 1 mIU/mL (1-3)
== END 2025-04-02 07:22 | disposition home or self-care (01) ==
LOC: LBO 04-03 07:22
PROVIDERS: PCP Nurse Practitioner Family; Visit Provider Nurse Practitioner Women's Health
DX: N92.6 Irregular menstruation, unspecified (principal)
CPT/HCPCS: 36415; 84439; 84443; 84702

== ENCOUNTER 2025-05-03 16:09 | Outpatient (CLI) | payer MEDICAID, SELFPAY ==
--- NOTE | 2025-05-03 16:00 | DI.RAD_ITS ---
Exam(s) XR ANKLE RT COMPLETE EXAM: XR ANKLE RT COMPLETE CLINICAL HISTORY: right ankle and foot pain, PAIN IN R LEG M79.604. TECHNIQUE: 2D digital imaging was performed. COMPARISON: No exams were available for comparison FINDINGS: 3 views No evidence of fracture or widening the ankle mortise. Talar dome unremarkable. Small inferior calcaneal spur noted Bone density normal. No osseous lesions. No osseous tarsal coalition. Small accessory ossicle noted dorsal to the proximal navicular (os supranaviculare). IMPRESSION: No acute osseous findings in the right ankle. DATA REPOSITORY: RADIATION DOSE DELIVERED:
--- NOTE | 2025-05-03 16:00 | DI.US_ITS ---
Exam(s) US LOWER EXTREMITY VENOUS RT EXAM: US LOWER EXTREMITY VENOUS RT CLINICAL HISTORY: right lower leg pain, M79.604 TECHNIQUE: Grayscale, color, and doppler imaging of the deep venous system of the lower extremity was performed. COMPARISON: Right FINDINGS: There is no evidence of intraluminal thrombus and there is normal compression and augmentation demonstrated within the common femoral vein, femoral vein, and popliteal vein. In the ipsilateral calf the interrogated veins also exhibit normal compression/ augmentation properties. The ipsilateral saphenofemoral junction is patent. IMPRESSION: 1. No evidence of DVT in the right lower extremity. DATA REPOSITORY:
--- NOTE | 2025-05-03 16:00 | DI.RAD_ITS ---
Exam(s) XR FOOT RT COMPLETE EXAM: XR FOOT RT COMPLETE CLINICAL HISTORY: right ankle and foot pain, PAIN IN R LEG M79.604. TECHNIQUE: 2D digital imaging was performed. COMPARISON: No exams were available for comparison FINDINGS: 3 views No evidence of acute fracture nor diastasis of the Lisfranc joint. Bone density normal. No osseous lesions nor erosions. Great toe metatarsophalangeal joint appears unremarkable. Accessory ossicles noted on the medial aspect of the foot adjacent to the navicular tuberosity. Small inferior calcaneal spur is noted. There is no calcification in the plantar fascia. Small accessory ossicle noted dorsal to the proximal navicular bone (os supranaviculare). There are no degenerative changes nor erosions. There is no radiopaque foreign body. IMPRESSION: No significant osseous findings in the right foot. DATA REPOSITORY: RADIATION DOSE DELIVERED:
--- NOTE | 2025-05-03 17:09 | DI.VRAD_ITS ---
PROCEDURE INFORMATION: Exam: US Duplex Right Lower Extremity Veins, Limited Exam date and time: 05/03/2025 4:21 PM Age: 34 years old Clinical indication: Pain; Swelling (edema) of limb; Lower extremity, right; Leg, lower; Unprovoked right ankle swelling for the past month with new right calf tenderness with palpation TECHNIQUE: Imaging protocol: Real-time duplex ultrasound of the right extremity with 2-D echosl scale, color Doppler flow and spectral waveform analysis including responses to compression and other maneuvers (when performed) with image documentation. Limited exam was focused on the right lower extremity veins. COMPARISON: MR LOWER JOINT RT WO 06/04/2024 12:28 FINDINGS: Right deep veins: Unremarkable. The common femoral, femoral, proximal profunda femoral and popliteal veins are patent without thrombus. Normal Doppler waveforms. Normal compressibility and/or augmentation response. Superficial veins: Greater saphenous vein at the saphenofemoral junction is patent without thrombus. Soft tissues: Unremarkable. IMPRESSION: No evidence of deep vein thrombosis. Dictated and Authenticated by: Cherise Simpson MD. Orderin Ranulfo Torres MD
--- NOTE | 2025-05-03 17:10 | DI.VRAD_ITS ---
PROCEDURE INFORMATION: Exam: XR Right Ankle Exam date and time: 05/03/2025 4:51 PM Age: 34 years old Clinical indication: Other: RT ankle / foot pain, atraumatic TECHNIQUE: Imaging protocol: Radiologic exam of the right ankle. Views: 3 or more views. COMPARISON: MR LOWER JOINT RT WO 06/04/2024 12:28 FINDINGS: Bones/joints: Unremarkable. Soft tissues: Unremarkable. IMPRESSION: No evidence for acute bony injury. If clinical symptoms persist recommend followup film in 7-10 days. Dictated and Authenticated by: Cherise Simpson MD. Orderin Ranulfo Torres MD
--- NOTE | 2025-05-03 17:16 | DI.VRAD_ITS ---
PROCEDURE INFORMATION: Exam: XR Right Foot Exam date and time: 05/03/2025 4:50 PM Age: 34 years old Clinical indication: Other: RT foot pain, atraumatic TECHNIQUE: Imaging protocol: Radiologic exam of the right foot. Views: 3 or more views. COMPARISON: MR LOWER JOINT RT WO 06/04/2024 12:28 FINDINGS: Bones/joints: Unremarkable. Soft tissues: Unremarkable. IMPRESSION: No acute bony findings. If clinical symptoms persist recommend followup film in 7-10 days. Dictated and Authenticated by: Cherise Simpson MD. Orderin Ranulfo Torres MD
== END 2025-05-03 16:29 ==
LOC: DI 16:16
PROVIDERS: PCP Nurse Practitioner Family; Visit Provider Physician Assistant
DX: M79.604 Pain in right leg (principal); M25.571 Pain in right ankle and joints of right foot
CPT/HCPCS: 73610; 73630; 93971